=== PATIENT | male | born 1960 | race Two or more races ===

== ENCOUNTER 2024-06-05 11:20 | Emergency (ER) | payer OTHER ==
[~2024-06-05] VITALS: Ht 172.7 cm; Wt 117.9 kg
[2024-06-05] MEDS ORDERED: ORPHENADRINE CITRATE 30 MG/ML AMPUL IM ONE (12:30)
[2024-06-05] MEDS ORDERED: METHYLPREDNISOLONE SOD SUCC 40 MG VIAL IM ONE (12:30)
[2024-06-05 12:56] LABS: HEMATOCRIT 30.2 % (39.0-48.0); HEMOGLOBIN 10.3 g/dL (13-16.00); MEAN CELL VOLUME 98.8 fL (80.0-100.00); MEAN CORPUSCULAR HEMOGLOBIN 33.8 pg (27.00-32.0); MEAN CORPUSCULAR HGB CONC 34.2 g/dl (32.0-36.0); RED BLOOD COUNT 3.05 M/uL (4.00-6.00); RED CELL DISTRIBUTION WIDTH 17.6 % (11.5-14.5)
[2024-06-05 13:00] LABS: PLATELET COUNT 119 K/uL (150-450)
[2024-06-05 13:03] LABS: ERYTHROCYTE SEDIMENTATION RATE 76 mm/hr
[2024-06-05 13:18] LABS: ALBUMIN 3.8 gm/dL (3.4-5.0); BILIRUBIN TOTAL 1.14 mg/dL (0.3-1.2); CALCIUM 8.9 mg/dL (8.5-10.1); CREATININE SERUM 1.22 mg/dL (0.70-1.30); GFR 59.99; GLOBULINA 4.6 G/DL (2.4-3.5); POTASSIUM 4.08 mEq/L (3.5-5.1); TOTAL PROTEIN 8.4 gm/dL (6.4-8.2)
[2024-06-05 13:22] LABS: C-REACTIVE PROTEIN 4.87 MG/DL (0.00-0.29)
[2024-06-05] MEDS ORDERED: MEDROLPACK PO (13:38)
== END 2024-06-05 13:58 | disposition home or self-care (01) ==
LOC: ER 11:21
PROVIDERS: General Practice
DX: R60.0 Localized edema (principal); I10 Essential (primary) hypertension; Z91.018 Allergy to other foods